=== PATIENT | female | born 1970 | race Caucasian/White ===

== ENCOUNTER 2021-12-24 10:17 | Outpatient (REF) | payer OTHER, SELFPAY ==
--- NOTE | ~2021-12-24 | XR_ITS ---
EXAMINATION: XR CHEST CLINICAL INFORMATION: Dyspnea. COMPARISON: Chest done on 09/09/2013. TECHNIQUE: 2 views of the chest were obtained. FINDINGS: Mild prominent bronchovascular markings are present, may represent reactive airway disease versus viral pneumonia/bronchiolitis. No evidence of any dense airspace consolidation. No evidence of any pleural effusion or pneumothorax. Heart size is within normal limits. XR/XR chest 2V IMPRESSION: Mild nonspecific prominent bronchovascular markings are present, new since prior study dated 09/09/2013, may represent reactive airway disease versus viral pneumonia versus bronchiolitis.
== END 2021-12-24 10:18 | disposition home or self-care (01) ==
LOC: HO.XRAY 10:17
PROVIDERS: PCP Internal Medicine; Visit Provider Internal Medicine
DX: R06.00 Dyspnea, unspecified (principal)
CPT/HCPCS: 71046

== ENCOUNTER 2022-03-31 11:24 | Outpatient (REF) | payer OTHER, SELFPAY ==
--- NOTE | ~2022-03-31 | XR_ITS ---
EXAMINATION: XR CHEST CLINICAL INFORMATION: Cough COMPARISON: December 24, 2021 and September 09, 2013 TECHNIQUE: 2 views of the chest were obtained. FINDINGS: There is again noted to be region of discoid density within the right middle lobe consistent with atelectasis or scarring. No new confluent airspace disease is appreciated. No pneumothorax or pleural effusion. Heart normal size. No evidence of pulmonary edema. XR/XR chest 2V IMPRESSION: Right middle lobe discoid disease consistent with atelectasis or scar.
== END 2022-03-31 11:25 | disposition home or self-care (01) ==
LOC: HO.XRAY 11:24
PROVIDERS: PCP Internal Medicine; Visit Provider Nurse Practitioner Adult Health
DX: R05.9 Cough, unspecified (principal)
CPT/HCPCS: 71046

== ENCOUNTER 2023-11-27 09:57 | Outpatient (REF) | payer OTHER, SELFPAY ==
--- NOTE | ~2023-11-27 | XR_ITS ---
EXAMINATION: XR FINGER, LEFT CLINICAL INFORMATION: Pain and swelling, patient states she fell off bed , 11/23/2023 and left fourth digit hurts. Radiopaque marker placed by technologist to indicate area of concern indicated by the patient at the distal tuft of the fourth digit. COMPARISON: None available. TECHNIQUE: 3 views of the left fourth digit. FINDINGS: No displaced fracture of the fourth digit is appreciated. Alignment and joint spaces of the fourth digit are preserved. Mild degenerative changes in the first carpometacarpal and metacarpophalangeal joints. XR/XR finger LT min 2V IMPRESSION: 1. No displaced fracture of the fourth digit is appreciated. 2. Recommend follow-up imaging in 10-14 days if fracture is suspected.
== END 2023-11-27 09:58 | disposition home or self-care (01) ==
LOC: HO.XRAY 09:57
PROVIDERS: Visit Provider Nurse Practitioner Adult Health
DX: R60.0 Localized edema (principal); M79.605 Pain in left leg
CPT/HCPCS: 73140

== ENCOUNTER 2023-12-15 10:43 | Outpatient (REF) | payer OTHER, SELFPAY ==
--- NOTE | ~2023-12-15 | XR_ITS ---
EXAMINATION: XR HAND, LEFT CLINICAL INFORMATION: Fall COMPARISON: None available. TECHNIQUE: PA, lateral, and oblique views of the left hand. FINDINGS: The bones and soft tissues are normal. No fracture. Alignment is anatomic. Joint spaces are maintained. No erosions or soft tissue calcifications. XR/XR hand LT min 3V IMPRESSION: Unremarkable left hand.
== END 2023-12-15 10:44 | disposition home or self-care (01) ==
LOC: HO.XRAY 10:43
PROVIDERS: PCP Internal Medicine; Visit Provider Internal Medicine
DX: M79.645 Pain in left finger(s) (principal); Z91.81 History of falling
CPT/HCPCS: 73130

== ENCOUNTER 2025-03-31 06:40 | Outpatient (RCR) | payer OTHER, SELFPAY | END 2025-06-03 15:40 | disposition home or self-care (01) | LOC: HO.PT 06:40 | PROVIDERS: PCP Internal Medicine; Visit Provider Student in an Organized Health Care Education/Training Program | DX: M17.11 Unilateral primary osteoarthritis, right knee (principal) | CPT/HCPCS: 97014; 97110; 97112; 97140; 97162 ==

== ENCOUNTER 2025-09-04 10:33 | Outpatient (AMB) | payer OTHER, SELFPAY ==
--- NOTE | 2025-09-04 10:40 | MHC.OFFVIS ---
Intake Visit Reasons: 4M Allergies codeine (From Tylenol-Codeine #3) Allergy (Mild, Unverified 09/04/25 10:45) UNKNOWN phenazopyridine (From Pyridium) Allergy (Mild, Unverified 09/04/25 10:45) RASH sulfamethoxazole (From Bactrim) Allergy (Mild, Unverified 09/04/25 10:45) UNKNOWN tetracycline (Tetracycline) Allergy (Mild, Unverified 09/04/25 10:45) RASH trimethoprim (From Bactrim) Allergy (Mild, Unverified 09/04/25 10:45) UNKNOWN Medication List - Last Reconciled 09/04/25 by Vida Chaves, ADRIAN amitriptyline 75 mg (1.5 x 50 mg) PO BEDTIME 90 days aripiprazole 5 mg PO QAM vagxbbdaeq-pcryokbqpcprs-axcu 50-325-40 mg 1 tab PO Q12H PRN 30 days fluoxetine 40 mg PO QAM fluticasone propion-salmeterol 500-50 mcg/dose (Wixela Inhub) 1 ea inhalation BID fremanezumab-vfrm (Ajovy) 225 mg (1.5 mL) subcut QMONTH 30 days gabapentin 300 mg PO TID 30 days lorazepam 1.5 mg PO DAILY oxycodone-acetaminophen 5-325 mg (Percocet) 0.5 tabs PO Q6H PRN propranolol ER (Inderal LA) 120 mg PO DAILY 90 days rosuvastatin 5 mg PO DAILY semaglutide (weight loss) (Wegovy) 2.4 mg subcut QWEEK trazodone 50 - 150 mg PO BEDTIME PRN zolpidem 10 mg PO BEDTIME HPI Comments Details: She was doing okay. She had R TKR in 06/2025. She has been out of work because of knee since 04/2025 and was officially retiring at the end of 09/2025. Migraines were better with Ajovy, no injection site reactions. She was using as needed medication about 2x/week. She would take butalbital first, and if no relief would take Percocet. She was having few more headaches recently triggered by stress. Asthma was okay, although she still had some wheezing at times, and says senior marketing associate wanted her to come off propranolol. Two weeks of bad headaches in 10/2024 when she returned to work after being off for few weeks. Had third dose of Ajovy on 12/01/2024. Gets headaches about every other day, but not as severe. Usually wakes with headaches. She tried increased dose of amitriptyline in the past, but did not help. Using?butalbital and Percocet more. Headaches increased around 04/2024 when propranolol dose was decreased. Her asthma was not well controlled at the time and pulmonary recommended she ask about propranolol adjustment. Pulmonary is apparently okay with current dose of propranolol. Asthma has been okay. Migraines induced by stress at work and with heat and humidity. 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 Previously, headaches were 1-2x/week. Using Fioricet 2-3/week, usually 1-1.5 a day. Using <20/month. Infrequent Percocet. She tried topiramate in the past with side effects. Botox for chronic migraine on 09/05/16 did not work well. Sumatriptan and Zomig did not work. She has migraine headaches without aura. [facility] Medical History (Updated 09/04/25 @ 10:43 by Vida Chaves CNP) Asthma Depression Migraine Surgical History (Updated 09/04/25 @ 10:47 by Vida Chaves CNP) Status post total right knee replacement Family History (Updated 09/04/25 @ 10:45 by Vida Chaves CNP) Father Headache Review of Systems Const Denies chills, Denies daytime sleepiness, Reports difficulty sleeping, Denies fatigue, Denies fever(s), Denies frequent falls, Reports headache(s), Denies increased appetite, Denies poor appetite, Denies snoring, Denies weakness, Denies weight gain and Denies weight loss Eyes Denies loss of vision ENT Denies vertigo, Denies dizziness, Reports headache(s) and Denies neck pain Card Denies chest pain at rest, Denies chest pain with activity, Denies syncope, Denies leg edema, Denies palpitations, Reports dyspnea and Denies dyspnea on exertion Resp Denies cough, Reports dyspnea, Denies dyspnea on exertion and Denies snoring GI Denies abdominal pain, Denies constipation, Denies heartburn, Denies diarrhea and Denies nausea Denies urinary frequency, Denies urinary incontinence and Denies urinary urgency Musc Denies abnormal gait, Denies back pain, Denies myalgias, Denies arthralgias, Denies neck pain, Denies numbness and Denies tingling Neuro Denies abnormal gait, Denies vertigo, Denies dizziness, Denies syncope, Denies frequent falls, Reports headache(s), Denies lack of coordination, Denies loss of vision, Denies memory loss, Denies numbness, Denies Other visual disturbances, Denies restless legs, Denies seizure-like activity, Denies tingling, Denies paresthesias, Denies tremor(s) and Denies weakness Psych Reports anxiety, Reports depression, Denies auditory hallucinations, Denies memory loss and Denies visual hallucinations Endo Denies fatigue and Denies palpitations Physical Exam Const Other: General Appearance:? normal, in no acute distress. Heart:? S1, S2 normal, no murmurs. Lungs:? clear anteriorly and posteriorly. Musculoskeletal:? normal. Extremities:? no edema. Psych:? alert, oriented, cognitive function intact, cooperative with exam. Neuro Other: Abnormal Neurological Findings:?none.? Mental Status: alert and oriented X 3. Normal attention, orientation, memory, and affect. Cranial Nerves: Pupils are equal, round, and reactive to light. External ocular muscles are intact. Visual sheikh are full, no ptosis. Face is symmetrical, no facial weakness or droop. Facial sensations are normal. Tongue protrudes in midline. Palate elevates symmetrically. Shoulder shrugging is normal Motor Examination: Normal muscle tone, bulk and strength. No atrophy or fasciculations. No drift of the extended upper extremities. DTR 2+. Plantars are flexor. Sensory Exam: Normal light touch, temperature, pinprick, vibration, and joint-position sensations. Rhomberg sign is absent. Coordination: No ataxia. No titubation. Gait Exam: Within normal limits. Cerebellar Signs: Dpxoxh-qy-vdsi is okay. Extrapyramidal System: No tremor, rigidity with normal facial expressions. No bradykinesia. No bradyphrenia. Normal arm swing and posture. No propulsion or retropulsion. Speech: Normal. Assessment & Plan Assessment & Plan (1) Migraine: Code(s): G43.909 - Migraine, unspecified, not intractable, without status migrainosus Category: Medical Qualifiers: Migraine type: unspecified Status migrainosus presence: without status migrainosus Intractability: not intractable Qualified Code(s): G43.909 - Migraine, unspecified, not intractable, without status migrainosus Plan: Discussed option to decrease propranolol dose, including possibly of increased headaches with reduced dose - given she admits to being under some more stress lately (which triggers headaches) and also admits to having few more headaches recently, may benefit from holding off at this time and can readdress at next appointment - however, she prefers to decrease dose. Decrease propranolol 60mg 0.5 tablet in the morning and 1 tablet at bedtime Continue Ajovy 225mg/1.5mL subcutaneous monthly. Continue amitriptyline 50mg 1.5 tablets at bedtime. Continue wrotnttwbn-WQDY-[id number] 50-325-40mg 1 tablet q12h as needed for headache #15 for 30 days. Continue Percocet 5-325mg 1/2 tablet q6h as needed for headache #15 for 30 days. Follow up in 3 months or sooner as needed. Plan Meds tried: topiramate, propranolol, amitriptyline, botox, gabapentin Medications: New propranolol 60 mg orally 1/2 tablet in the morning and 1 tablet at night; 135 tabs 0RF 90 days Discontinued propranolol ER (Inderal LA) Discontinued Reason: Doctor's Order 120 mg PO DAILY 90 days 90 caps 1RF Coding Level of Care Code Est Pt Level 4 (49780) Diagnoses Migraine without status migrainosus, not intractable, unspecified migraine type G43.909 Migraine type: unspecified Status migrainosus presence: without status migrainosus Intractability: not intractable
--- OUTSIDE RECORDS SUMMARY | 2025-09-04 13:16 | XMS_ITS | Clinical Summary ---
Author Organization [facility] Address [address] [place] [phone] Phone Care Team Providers Care [employer] Name Role Phone Blayne Davies DO Primary Care Provider [phone] Allergies Active Allergy Reactions Criticality Noted Date Comments Baclofen Nausea And Vomiting Medium 05/29/2025 Cephalexin Unknown Low 05/29/2025 Unknown reaction Note: Patient treated with cefuroxime January 2025 without adverse reaction. Was able to complete course of p.o. antibiotics. Codeine Nausea And Vomiting Low 04/08/2009 Phenazopyridine Low 05/29/2025 unknown Phenazopyridine-Butabarb- Hyosc Nausea And Vomiting Low 04/08/2009 Sulfa (Sulfonamide Antibiotics) Nausea And Vomiting Low 04/08/2009 Sulfamethoxazole-Trimetho prim Nausea And Vomiting Low 11/21/2012 Tetracyclines Nausea And Vomiting Low 04/08/2009 Medications ARIPiprazole (ABILIFY) 5 mg tablet Take 1 tablet (5 mg total) by mouth 1 (one) time each day in the morning. 2 Active butalbital-acetam inophen-caffeine (FIORICET, ESGIC) 50-325-40 mg per tablet TAKE 1 TABLET EVERY 12 HOURS NEEDED ORALLY DIRECTED 30 DAYS 2 Active cetirizine (ZyrTEC) 10 mg tablet Take 1 tablet (10 mg total) by mouth 1 (one) time each day. for 14 days 5 Active albuterol-budeson jesus (Airsupra) 90-80 mcg/actuation inhaler Inhale 2 puffs by mouth every 4 (four) hours. Active Wegovy 2.4 mg/0.75 mL injection pen /05/26/25 last dose Active Tezspire 210 mg/1.91 mL (110 mg/mL) injection Inject 210 mg under the skin every 28 (twenty-eight) days. Due 06/03 Active Ajovy Autoinjector 225 mg/1.5 mL auto-injector Inject 1.5 mL (225 mg total) under the skin every 28 (twenty-eight) days. Active tiotropium (SPIRIVA RESPIMAT) 1.25 mcg/actuation inhalation spray Inhale 2 puffs by mouth 1 (one) time each day. 5 days pre op will increase to twice day per prescriber Active traZODone (DESYREL) 50 mg tablet Take 2 tablets (100 mg total) by mouth at bedtime. 5 Active gabapentin (NEURONTIN) 300 mg capsule Take 1 capsule (300 mg total) by mouth 2 (two) times a day. 2 Active LORazepam (ATIVAN) 0.5 mg tablet Take 1 tablet (0.5 mg total) by mouth. 1/2 tab AM and 1 mg HS Active potassium chloride 20 mEq tablet extended release Take 1 tablet by mouth 2 (two) times a day with meals. Active omeprazole (PriLOSEC) [address] capsule Take 1 capsule (40 mg total) by mouth 1 (one) time each day in the morning. 2 Active FLUoxetine (PROzac) 20 mg capsule Take 2 capsules (40 mg total) by mouth 1 (one) time each day in the morning. 4 Active hydroCHLOROthiazi de (HYDRODIURIL) 25 mg tablet Take 1 tablet (25 mg total) by mouth 1 (one) time each day in the morning. 4 Active propranolol LA (INDERAL LA) 120 mg 24 hr capsule Take 1 capsule (120 mg total) by mouth 1 (one) time each day. for 90 days Active rosuvastatin (CRESTOR) 5 mg tablet Take 1 tablet (5 mg total) by mouth 1 (one) time each day. 2 Active zolpidem (AMBIEN) 10 mg tablet Take 1 tablet (10 mg total) by mouth at bedtime. 4 Active riboflavin, vitamin B2, (PUREVITA VITAMIN B2 ORAL) Take by mouth. Activ e melatonin 10 mg capsule Take 6 capsules (60 mg total) by mouth at bedtime. Active calcium carbonate/vitamin D3 (CALCIUM 500 + D, D3, ORAL) Take by mouth. Ac tive [id number]-[id number] -FA-vit K-lut (Multivitamin Women 50 Plus) 8 mg iron-400 mcg-50 mcg tablet Take by mouth. Active methocarbamoL (ROBAXIN) 750 mg tablet Take 1 tablet (750 mg total) by mouth every 6 (six) hours if needed for muscle spasms for up to 10 days. 40 tablet 5 Active senna-docusate (PERICOLACE) 8.6-50 mg per tablet Take 1 tablet by mouth 2 (two) times a day. 30 tablet 5 06/21/20 26 Active Active Problems Problem Noted Date Diagnosed Date Elective surgery 06/19/2025 Hyperlipidemia 06/04/2025 Assessment & Plan (06/04/2025 7:18 AM EDT): Managed with rosuvastatin, low-cholesterol diet and lifestyle modification. Suggest continued outpatient follow up. Depression with anxiety 06/04/2025 Assessment & Plan (06/04/2025 7:18 AM EDT): Stable on current medication regimen of aripiprazole, fluoxetine, and as needed lorazepam. Recommend minimizing disruption to medication schedule. May benefit from anxiolytic in the perioperative setting. Asthma Overview (05/29/2025): from [facility] Assessment & Plan (06/04/2025 7:35 AM EDT): Respiratory status is stable. Managed by allergy and immunology. Taking Tezspire [Anti-thymic stromal lymphopoietin] every 28 days. Inhalers: Spiriva and Airsupra. No hospitalizations or treatment with antibiotics or prednisone in 90 days. PFT above. No anemia. Clinically patient appears well in the office today. Lungs CTA. SpO2 96%. ARISCAT score: 3 points, low risk, 1.6% risk of in-hospital post-op pulmonary complications. GERD (gastroesophageal reflux disease) Overview (05/29/2025): DX:GERD (gastroesophageal reflux disease); COMMENT: s/p EGD Dr. Owusu, 2006 Assessment & Plan (06/01/2025 9:58 AM EDT): Taking PPI. No alarm symptoms. Suggest attention to GI prophylaxis periop. PONV (postoperative nausea and vomiting) Assessment & Plan (06/04/2025 7:35 AM EDT): No glaucoma history. Attention to postoperative nausea and vomiting during hospitalization. This will be discussed during the perioperative setting with the anesthesia team. Encounters Date Type Department Care Team Description 06/19/2025 10:36 AM EDT Anesthesia Event [facility] OR [address] [place] [phone] Abdoulaye Call MD Jaeger, David B, MD 06/19/2025 10:30 AM EDT - 06/19/2025 1:00 PM EDT Surgery [address] [phone] Julius Moy MD ARTHROPLASTY KNEE TOTAL [11785 (CPT )] 06/19/2025 7:38 AM EDT - 06/21/2025 12:27 PM EDT Hospital Encounter [facility] [address] [place] [phone] Julius Moy MD S/P total knee replacement, right (Primary Dx); Primary osteoarthritis of right knee Discharge Disposition: Home-Health Care [facility] from Last 3 Months Surgical History Surgery Date Site/Laterality Comments OTHER SURGICAL HISTORY PROCEDURE: FL US ABLATJ UTERINE LEIOMYOMATA < 200 CC TISSUE; COMMENT: Gluterius CHOLECYSTECTOMY COLONOSCOPY ENDOMETRIAL ABLATION DILATION AND CURETTAGE OF UTERUS HYSTEROSCOPY SECTION, LOW TRANSVERSE 2 Medical History Medical History Date Comments GERD (gastroesophageal reflux disease) s/p EGD Dr. Owusu, 2006 Depression Kidney stone Pure hypercholesterolemia Ovarian cyst 04/08/2009 Migraine 04/08/2009 Gall stone s/p cholecystect rosendo 05/27 Lymphedema of arm 10/11/2012 Morbid obesity ([facility] V24, [facility] V28) 2012 Asthma Peripheral neuropathy occ at nig ht Left hand numbness Insomnia disorder Anxiety Arthritis PONV (postoperative nausea and vomiting) Family History Medical History Relation Name Comments No Known Problems Brother 1 Diabetes Father Christian lintond Father Hyperlipidemia Father Christian lintond Hypertension Father Christian lintond Cancer Mother Flor mahajan pancreatic Early Mother Flor mahajan cance r Hyperlipidemia Mother Flor mahajan Relation Name Status Comments Brother 1 Alive Brother 2 Father Christian mahajan Alive htn, dm Mother Flor mahajan (Age 74) htn Sister Alive Social History Tobacco Use Types Packs/Day Years Used Date Smoking Tobacco: Never Smokeless Tobacco: Never Tobacco Cessation:Counseling Given: Not Answered Alcohol Use Standard Drinks/Week Comments No 0 (1 standard drink = 0.6 oz pur e alcohol) Interpersonal Safety Answer Date Record ed Physical Abuse Unrecognized value 06/20/2025 Verbal Abuse Unrecognized value 06/20/2025 Comments No Sex and Gender Information Value Date Recorded Sex Assigned at Not on file Legal Sex Female 7:04 PM EST Gender Identity Not on file Sexual Orientation Not on file 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 Not on file Not on file Not on file Last Filed Vital Signs Vital Sign Reading Time Taken Comments Blood Pressure 140/82 06/21/2025 7:35 AM EDT Pulse 66 06/21/2025 7:35 AM EDT Temperature 37 C (98.6 F) 06/21/2025 7:35 AM EDT Respiratory Rate 14 06/21/2025 7:35 AM EDT Oxygen Saturation 96% 06/21/2025 7:35 AM EDT Inhaled Oxygen Concentration - - Weight 96.4 kg (212 lb 8 oz) 06/19/2025 8:29 AM EDT Height 157.5 cm (5' 2 ) 06/19/2025 8:29 AM EDT Body Mass Index 38.87 06/19/2025 8:29 AM EDT Plan of Treatment Health Maintenance Due Date Last Done Comments Breast Cancer Screening 1968 Colorectal Cancer Screening: Colonoscopy 1968 Drug Screen 1968 Naloxone Order 1968 Non-Opioid Controlled Substance Agreement 1968 Opioid Substance Agreement 1968 Pain Assessment 1968 Hepatitis B Vaccines (1 of 3 - 19+ 3-dose series) 1987 Pneumococcal Vaccine: 50+ Years (1 of 2 - PCV) 1987 Cervical Cancer Screening: Pap Smear 1989 RSV Immunization Adult Patients (1 - Risk 50-74 years 1-dose series) 2018 Zoster Vaccines (1 of 2) 2018 HIV Screening 08/20/2022 Hepatitis C Screening 08/20/2022 Social Influencers of Health Screening 08/20/2022 Depression Screening 09/18/2024 COVID-19 Vaccine (4 - season) 2025 09/06/2022, 11/13/2020, 10/16/2020 Influenza Vaccine (#1) 2025 , 06/20/2023, 06/13/2018, Additional history exists Cholesterol Screening (Lipid Panel) 01/01/2030 01/01/2025 DTaP,Tdap,and Td Vaccines (4 - Td or Tdap) 01/27/2032 01/26/2022, 11/21/2012, 09/19/2007 HIB Vaccines Aged Out No longer eligi ble based on patient's age to complete this topic HPV Vaccines Aged Out No longer eligi ble based on patient's age to complete this topic Hepatitis A Vaccines Aged Out No long er eligible based on patient's age to complete this topic IPV Vaccines Aged Out No longer eligi ble based on patient's age to complete this topic MMR Vaccines Aged Out No longer eligi ble based on patient's age to complete this topic Meningococcal ACWY Vaccine Aged Out N o longer eligible based on patient's age to complete this topic Meningococcal B Vaccine Aged Out No l onger eligible based on patient's age to complete this topic RSV Immunization Patients Under 20 months Aged Out No longer eligible based on patient's age to complete this topic Varicella Vaccines Aged Out No longer eligible based on patient's age to complete this topic Goals Goal Patient Goal Type Associated Problems Recent Progress Patient-Stated? Author Autogenerat ed Goal Care Plan Autogenerated Problem No [employer] Implanted Type Area Oil Tank Car Cleaner Device Identifier Shelf Expiration Date Model / Serial / Lot Cement Bone Surg Simplex Radiopq - [id number] Implanted:Qty: 1 on 06/19/2025 by Julius Moy MD at [facility] Bone Cement Right: Knee [employer] 09/17/2027 [id number] / / [id number] Patella [id number] Leatha Ii Strl Resur - Sna - [id number] Implanted:Qty: 1 on 06/19/2025 by Julius Moy MD at [facility] Joints Knee Right: Knee [employer] 01/19/2035 [id number] / NA / [id number] Cr Fem Ox [employer] Internet Sales Consultant Rt Sz 3 - Sna - [id number] Implanted:Qty: 1 on 06/19/2025 by Julius Moy MD at [facility] Joints Knee Right: Knee [employer] 11/19/2033 [id number] / NA / [id number] Poroustibia Baseplate W/Jrny Lock Sz2 Rt - Sna - [id number] Implanted:Qty: 1 on 06/19/2025 by Julius Moy MD at [facility] Joints Knee Right: Knee [employer] 03/05/2035 [id number] / NA / [id number] Insert Cruc Journey Xlpe Rt 1-2 10mm - [id number] Implanted:Qty: 1 on 06/19/2025 by Julius Moy MD at [facility] Joints Knee Right: Knee [employer] 09/18/2026 [id number] / / [id number] Procedures Procedure Name Priority Date/Time Associated Diagnosis Comments OXYGEN THERAPY, ADULT Routine 06/20/2025 8:01 AM EDT OXYGEN THERAPY, ADULT Routine 06/20/2025 8:01 AM EDT ALBUMIN Routine 06/20/2025 5:32 AM EDT OXYGEN THERAPY, ADULT Routine 06/19/2025 3:38 PM EDT OXYGEN THERAPY, ADULT Routine 06/19/2025 3:38 PM EDT OXYGEN THERAPY, ADULT Routine 06/19/2025 12:36 PM EDT ANESTHESIA SPINAL BLOCK Routine 06/19/2025 10:40 AM EDT FL ARTHROPLASTY KNEE CONDYLE&PLATEAU MED/LAT CPTS W/WO PATELLA RESURFACING 06/19/2025 10:20 AM EDT Unilateral primary osteoarthritis, right knee Case Notes Bambi-Op 06/02 MP23 [employer]&Nephew: Sunny 2 LIPID PANEL WITH REFLEX TO DIRECT LDL Routine 01/01/2025 8:03 AM EDT Routine general medical examination at a health care facility Essential hypertension, malignant Hyperlipemia from Last 3 Months or Most Recently Relevant to Health Maintenance Results * (ABNORMAL) Albumin (06/20/2025 5:32 AM EDT) Albumin 3.4(L) 3.5 - 5.0 g/dL LAB CHEMISTRY METHOD 06/20/2025 6:15 AM EDT [facility] Blood Venous blood specimen / Unknown Venipuncture / Unknown 06/20/2025 5:32 AM EDT 06/20/2025 5:43 AM EDT us Donnell URENA LAB BLOOD ORDERABLES Final Res ult [facility] [address] [place] [address], * Spinal Block (06/19/2025 10:40 AM EDT) Narrative Wendy Shankar CRNA - 06/19/2025 10:40 AM EDT Wendy Shankar CRNA 06/19/2025 11:14 AM Spinal Block Patient location during procedure: OR Start time: 06/19/2025 10:40 AM End time: 06/19/2025 10:43 AM Reason for block: primary anesthetic Staffing Performed: resident/ELECTRON BEAM PHOTO MASK MAKER/CAA Resident/ELECTRON BEAM PHOTO MASK MAKER: Wendy Shankar CRNA Performed by: Wendy Shankar CRNA Authorized by: Abdoulaye Call MD Preanesthetic Checklist Completed: patient identified, IV checked, risks and benefits discussed, surgical consent, monitors and equipment checked, pre-op evaluation and timeout performed Spinal Block Patient position: sitting Prep: ChloraPrep Patient monitoring: heart rate, liquid compounder and continuous pulse ox Approach: midline Location: L4-5 Injection technique: single-shot Needle Needle type: Leyla Needle gauge: 22 G Needle length: 3.5 in Assessment Sensory level: T10 us Abdoulaye Call MD ANESTHESIA ORDERABLES Karla l Result * Lipid panel with reflex to direct LDL (01/01/2025 8:03 AM EDT) Cholesterol 176 0 - 200 mg/dL LAB [facility]STR[facility] Triglycerides 95 0 - 150 mg/dL LAB CHEMISTRY METHOD 01/01/2025 12:09 PM [facility] HDL 69 >=40 mg/dL LAB CHEMISTRY METHOD 01/01/2025 12:09 PM [facility] LDL Calculated 88 0 - 100 mg/dL LAB CHEMISTRY METHOD 01/01/2025 12:09 PM [facility] VLDL Cholesterol James 19 mg/dL LAB CHEMISTRY METHOD 01/01/2025 12:09 PM [facility] Non HDL Chol. (LDL+VLDL) 107 <145 mg/dL LAB CHEMISTRY METHOD 01/01/2025 12:09 PM [facility] Chol/HDL Ratio 2.6 0.0 - 4.4 LAB CHEMISTRY METHOD 01/01/2025 12:09 PM [facility] Blood Venous blood specimen / Unknown Venipuncture / Unknown 01/01/2025 8:03 AM EDT 01/01/2025 8:03 AM EDT us Kalyn Bland NP LAB BLOOD ORDERABLES Fi nal Result [facility] [address] [place] [address], from Last 3 Months or Most Recently Relevant to Health Maintenance Additional Health Concerns Active Problems Noted Date Diagnosed Date Autogenerated Problem 06/15/2025 Insurance [facility] Advance Directives * Full Code - Confirmed (Latest Code Status on File) Date Activated Date Inactivated Comments 06/19/2025 1:03 PM 06/21/2025 2:[address] [facility] was ascertained in the following way: Code status discussion: discussion with patient To update the patient's code status, place a code status order. Do not modify or discontinue any currently active code status orders. * Full Code - Confirmed Date Activated Date Inactivated Comments 06/19/2025 7:54 AM 06/19/2025 1:[address] [facility] was ascertained in the following way: Code status discussion: discussion with patient To update the patient's code status, place a code status order. Do not modify or discontinue any currently active code status orders. Care Teams [employer] C[employer] Relationship Specialty Start Date End Date Blayne Davies DO [address] [place] [phone] PCP - General 07/19/22
--- OUTSIDE RECORDS SUMMARY | 2025-09-04 13:16 | XMS_ITS ---
Author Name [facility] Organization Unknown Results Test Name/Text Value Interpretation Date Range Source Albumin SerPl-mCnc 3.4 g/dL Below low normal 06/20/2025 3.5 - 5 [facility] History of Medication Use Medication Directions Dispensed Refills Start Date End Date Status dexAMETHasone (DECADRON) tablet 8 mg 8 mg, oral, Once, On Mon06/20/25 at 0800, For 1 dose, Phase II/On Unit, For 1 dose on POD#1 in the morning. Hold for patients with the following procedures: I&D with or without poly exchange, resection arthroplasty, removal of prosthesis. 5 025 completed ARIPiprazole (ABILIFY) tablet 5 mg 5 mg, oral, Every morning, First dose on Mon06/20/25 at 0700 5 active HYDROmorphone (DILAUDID) 2 mg tablet Take 1 tablet (2 mg total) by mouth every 4 (four) hours if needed for moderate pain (pian 1-3). Max Daily Amount: 12 mg 5 active HYDROmorphone (DILAUDID) tablet 4 mg 4 mg, oral, Every 4 hours PRN, moderate pain, pain 4-6, Starting on Mon06/20/25 at 1332 5 active loratadine (CLARITIN) tablet 10 mg 10 mg, oral, Daily, First dose on Mon06/20/25 at 0900 5 active melatonin disintegrating tablet 10 mg 10 mg, oral, Nightly PRN, sleep, Starting on Mon06/20/25 at 0014 5 active pantoprazole (PROTONIX) EC tablet 40 mg 40 mg, oral, Every morning before breakfast, First dose on Mon06/20/25 at 0700, Do not crush, chew, or split. active potassium chloride (KLOR-CON M20) CR tablet 10 mEq 10 mEq, oral, 2 times daily, First dose on Mon06/20/25 at 0030, Tablet may be swallowed whole (do not crush/chew/suck on) OR broken in half and each half swallowed separately OR dissolved (whole tablet) in ~4 ounces of water (allow ~2 minutes to dissolve, stir well and administer immediately). active propranolol LA (INDERAL LA) 24 hr capsule 120 mg 120 mg, oral, Daily, First dose on Mon06/20/25 at 0900, Do not crush, chew, or split. active revefenacin (YUPELRI) 175 mcg/3 mL nebulizer solution 175 mcg 175 mcg, nebulization, Daily, First dose on Mon06/20/25 at 0900 active senna-docusate (PERICOLACE) 8.6-50 mg per tablet Take 1 tablet by mouth 2 (two) times a day. active oxyCODONE (ROXICODONE) immediate release tablet 10 mg 10 mg, oral, Every 4 hours PRN, moderate pain, Pain scale 4-6, Starting on Kiki 06/19/25 at 1302, Recovery & On Unit 5 aborted acetaminophen (TYLENOL) 500 mg tablet Take 2 tablets (1,000 mg total) by mouth every 8 (eight) hours 5 025 active ceFAZolin (ANCEF) 2 g in sterile water 20 mL IV syringe 2 g, intravenous, Administer over 3 Minutes, Once, On Kiki 06/19/25 at 1900, For 1 dose, Phase II/On Unit, ceFAZolin (ANCEF) IV 2g patients less than 120kg Give 8 hours after intra-op dose, Indication: Prophylaxis-Surgic al 5 025 completed fentaNYL (PF) (SUBLIMAZE) injection 100 mcg 100 mcg, intravenous, Once as needed, severe pain, Starting on Kiki 06/19/25 at 0754, For 1 dose, Preprocedure 5 completed HYDROmorphone (DILAUDID) injection 0.5 mg 0.5 mg, intravenous, Every 4 hours PRN, severe pain, Pain scale 7-10, Starting on Kiki 06/19/25 at 1324, Recovery [facility] On Unit 5 active meloxicam (MOBIC) 15 mg tablet Take 1 tablet (15 mg total) by mouth 1 (one) time each day. 5 active midazolam (VERSED) injection 2 mg 2 mg, intravenous, Once, On Kiki 06/19/25 at 0815, For 1 dose, Preprocedure 5 completed orphenadrine (NORFLEX) injection 30 mg 30 mg, intravenous, Once as needed, muscle spasms, Starting on Kiki 06/19/25 at 1236, For 1 dose, Recovery (only) 5 completed tranexamic acid (CYKLOKAPRON) 1,000 mg in sodium chloride 0.9 % 100 mL IVPB - MBP 1,000 mg (1 g), intravenous, at 300 mL/hr, Administer over 20 Minutes, Once, On Kiki 06/19/25 at 1330, For 1 dose, Recovery (only), Administer within 30 minutes of arrival to PACU Mini-Bag Plus bag. Do not exceed maximum rate of 100 mg per minute., Tranexamic Acid Indication: Surgical Prophylaxis: Ort 5 completed aluminum-magnesium hydroxide-simethicone (MAALOX) 200-200-20 mg/5 mL suspension 30 mL 30 mL, oral, Every 6 hours PRN, indigestion, Starting on Kiki 06/19/25 at 1538, Phase II/On Unit active aspirin 81 mg EC tablet Take 1 tablet (8 1 mg total) by mouth 2 (two) times a day with meals. active benzocaine-menthoL (CEPACOL SORE THROAT) 15-3.6 mg lozenge 1 lozenge 1 lozenge, Mouth/Throat, Every 2 hours PRN, sore throat, Starting on Kiki 06/19/25 at 1538, Phase II/On Unit 5 active bisacodyL (DULCOLAX) suppository 10 mg 10 mg, rectal, Daily PRN, constipation, Starting on Kiki 06/19/25 at 1538, Phase II/On Unit, Hold for patients with history of IBS, IBO, ileostomy 5 active calcium carbonate (TUMS) chewable tablet 500 mg 500 mg, oral, Every 4 hours PRN, heartburn, indigestion, Starting on Kiki 06/19/25 at 1538, Phase II/On Unit, Ordered as calcium carbonate. 500 mg calcium carbonate = 200 mg elemental calcium. 5 active ipratropium-albuteroL (DUONEB) 0.5-2.5 mg/3 mL nebulizer solution 3 mL 3 mL, nebulization, Once as needed, wheezing, Starting on Kiki 06/19/25 at 1312, For 1 dose 5 active lactated Ringer's infusion 100 mL/hr, intravenous, Continuous, Starting on Kiki 06/19/25 at 0815, Preprocedure 5 active magnesium hydroxide (MILK OF MAGNESIA) 400 mg/5 mL suspension 30 mL 30 mL, oral, Daily PRN, constipation, Starting on Kiki 06/19/25 at 1538, Phase II/On Unit, Hold for patients with history of IBS, IBO, ileostomy 5 active methocarbamoL (ROBAXIN) 750 mg tablet Take 1 tablet (750 mg total) by mouth every 6 (six) hours if needed for muscle spasms for up to 10 days. 5 active metoclopramide (REGLAN) injection 10 mg 10 mg, intravenous, Every 6 hours PRN, nausea, vomiting, Starting on Kiki 06/19/25 at 1302, Recovery & On Unit, To be given if zofran is ineffective Doses LESS than or equal to 10 mg can be given IV push undiluted over 1 minute 5 active ondansetron (PF) (ZOFRAN) injection 4 mg 4 mg, intravenous, Every 6 hours PRN, nausea, vomiting, Starting on Kiki 06/19/25 at 1302, Recovery & On Unit, To be given first 5 active Senokot-S 8.6 mg-50 mg tablet Take 1 tablet twice a day by oral route. 5 completed Tylenol Extra Strength 500 mg tablet Take 2 tablets every 8 hours by oral route for 28 days. 5 completed tranexamic acid 650 mg tablet Take 3 tablets every day by oral route in the morning for 3 days, for start the day after surgery. 5 completed traZODone (DESYREL) 50 mg tablet Take 2 tablets (100 mg total) by mouth at bedtime. 5 active prednisone 10 mg tablet Take 5 tablet(s) EVERY DAY by oral route for 2 days, then decrease by 1 pill every other day until gone (5,5,4,4,3,3,2,2,1 ,1) 5 023 active Euflexxa 10 mg/mL (mw 2.4-3.6 million) intra-articular syringe Inject 10 mg by intra-articular route for 21 days. 5 active cetirizine (ZyrTEC) 10 mg tablet Take 1 tablet (10 mg total) by mouth 1 (one) time each day. for 14 days 5 active triamcinolone acetonide 40 mg/mL suspension for injection Take 60 mg by injection route. 4 active meloxicam 15 mg tablet Take 1 tablet every day by oral route as needed for 30 days. 3 025 active Kenalog 40 mg/mL suspension for injection Take 1 mL by injection route. 3 023 completed lidocaine (PF) 100 mg/5 mL (2 %) injection syringe Take 3 mL by injection route. 3 023 active butalbital-acetaminophe n-caffeine (FIORICET, ESGIC) 50-325-40 mg per tablet TAKE 1 TABLET EVERY 12 HOURS NEEDED ORALLY DIRECTED 30 DAYS 2 active oxyCODONE-acetaminophen (PERCOCET) 5-325 mg per tablet 1 tablet every 6 (six) hours if needed. Use 1/2 tab 2 active omeprazole (PriLOSEC) [address] capsule Take 1 capsule (40 mg total) by mouth 1 (one) time each day in the morning. 2 active diclofenac (VOLTAREN) 75 mg EC tablet Take 1 tablet (75 mg total) by mouth 2 (two) times a day. 2 active rosuvastatin (CRESTOR) 5 mg tablet Take 1 tablet (5 mg total) by mouth 1 (one) time each day. 2 active gabapentin (NEURONTIN) 300 mg capsule Take 1 capsule (300 mg total) by mouth 2 (two) times a day. 2 active ARIPiprazole (ABILIFY) 5 mg tablet Take 1 tablet (5 mg total) by mouth 1 (one) time each day in the morning. 2 active amitriptyline (ELAVIL) 50 mg tablet Take 1 tablet (50 mg total) by mouth 1 (one) time each day. 2 025 aborted hydroCHLOROthiazide (HYDRODIURIL) 25 mg tablet Take 1 tablet (25 mg total) by mouth 1 (one) time each day in the morning. 4 active FLUoxetine (PROzac) 20 mg capsule Take 2 capsules (40 mg total) by mouth 1 (one) time each day in the morning. 4 active zolpidem (AMBIEN) 10 mg tablet Take 1 tablet (10 mg total) by mouth at bedtime. 4 active ondansetron 8 mg disintegrating tablet DISSOLVE 1 TABLET BY MOUTH EVERY 8 HOURS NEEDED FOR NAUSEA 025 completed oxycodone 5 mg tablet TAKE 1 TO 2 TABLETS BY MOUTH EVERY 6 HOURS NEEDED FOR PAIN. 025 completed Wegovy 1 mg/0.5 mL subcutaneous pen injector INJECT 1 MG SUBCUTANEOUSLY EVERY WEEK DIRECTED. ROTATE INJECTION SITES IN THE ABDOMEN, THIGH OR UPPER ARM 025 active Wegovy 1.7 mg/0.75 mL subcutaneous pen injector INJECT 0.75 MILLILITERS SUBCUTANEOUSLY WEEKLY 025 active albuterol HFA (PROAIR HFA ; PROVENTIL HFA ; VENTOLIN HFA) 90 mcg/actuation inhaler Take by mouth. 05/19 09/19 025 aborted cromolyn (OPTICROM) 4 % ophthalmic solution INSTILL 1 DROP INTO EACH EYE EVERY 3-4 HOURS 025 aborted fluticasone propion-salmeteroL (ADVAIR DISKUS) 500-50 mcg/dose diskus inhaler Inhale 1 puff by mouth 2 (two) times a day. 025 aborted albuterol sulfate 2.5 mg/3 mL (0.083 %) solution for nebulization INHALE 3 ML BY NEBULIZATION EVERY 6 HOURS NEEDED FOR 30 DAYS 025 active azithromycin 250 mg tablet TAKE 2 TABLETS BY MOUTH TODAY, THEN TAKE 1 TABLET DAILY FOR 4 DAYS DIRECTED 025 active fluconazole 150 mg tablet TAKE 1 TABLET BY MOUTH ONCE 025 completed gabapentin 100 mg capsule TAKE 1 TO 2 CAPSULES BY MOUTH DAILY NEEDED. 025 active benzonatate 200 mg capsule TAKE 1 CAPSULE BY MOUTH THREE TIMES A DAY FOR 10 DAYS NEEDED 025 active Flowflex COVID-19 Antigen Home Test kit 025 completed montelukast 10 mg tablet TAKE 1 TABLET BY MOUTH EVERYDAY AT BEDTIME 025 completed scopolamine 1 mg over 3 days transdermal patch APPLY 1 PATCH TO SKIN BEHIND THE EAR NEEDED TRANSDERMAL EVERY 3 DAYS 025 completed Wegovy 0.25 mg/0.5 mL subcutaneous pen injector INJECT 0.5 ML SUBCUTANEOUSLY WEEKLY 025 completed cephalexin 500 mg capsule TAKE 1 CAPSULE BY MOUTH TWICE A DAY FOR 7 DAYS 024 completed nystatin 100,000 unit/gram topical cream APPLY TO AFFECTED AREA 4 TIMES A DAY FOR 10 DAYS 024 completed nystatin 100,000 unit/gram topical powder APPLY TOPICALLY 4 TIMES DAILY UNTIL RESOLUTION FOR 30 DAYS 024 active prednisone 20 mg tablet TAKE 2 TABLETS B Y MOUTH EVERY DAY FOR 5 DAYS 024 active prednisone 5 mg tablet PLEASE SEE ATTACHED FOR DETAILED DIRECTIONS 023 completed Trelegy Ellipta 200 mcg-62.5 mcg-25 mcg powder for inhalation INHALE ONE PUFF BY MOUTH DAILY 023 completed Advair Diskus 250 mcg-50 mcg/dose powder for inhalation INHALE 1 PUFF INTO THE LUNGS TWICE A DAY FOR 30 DAYS 023 completed albuterol sulfate HFA 90 mcg/actuation aerosol inhaler INHALE 1 TO 2 PUFFS BY MOUTH EVERY 4 TO 6 HOURS NEEDED 023 active aripiprazole 023 completed butalbital-acetaminophe n-caffeine 50 mg-325 mg-40 mg tablet TAKE 1 TABLET BY MOUTH EVERY 12 HOURS FOR 7 DAYS DIRECTED 023 active codeine 10 mg-guaifenesin 100 mg/5 mL oral liquid TAKE 10 MLS BY MOUTH EVERY 4 HRS NEEDED FOR 10 DAYS 023 completed diclofenac sodium 75 mg tablet,delayed release TAKE 1 TABLET BY MOUTH TWICE A DAY FOR 14 DAYS 023 completed fluoxetine 023 completed hydrochlorothiazide 023 completed montelukast 023 completed omeprazole 023 completed Wixela Inhub 500 mcg-50 mcg/dose powder for inhalation INHALE 1 PUFF BY MOUTH TWICE A DAY 023 active Ajovy 225 mg/1.5 mL subcutaneous auto-injector INJECT 1.5 ML SUBCUTANEOUS MONTHLY 30 DAYS active amitriptyline 50 mg tablet TAKE 1 TABLET BY MOUTH EVERY DAY active aripiprazole 5 mg tablet TAKE 1 TABLET BY MOUTH EVERY DAY IN THE MORNING active ascorbate calcium (vitamin C) 500 mg tablet Take by oral route. active aspirin 81 mg tablet,delayed release TAKE 1 TABLET BY MOUTH TWO TIMES A DAY active benzonatate 100 mg capsule TAKE 1 CAPSULE BY MOUTH THREE TIMES A DAY NEEDED FOR 7 DAYS active cefuroxime axetil 500 mg tablet TAKE 1 TABLET BY MOUTH EVERY 12 HOURS FOR 5 DAYS active cetirizine 10 mg tablet TAKE 1 TABLET BY MOUTH EVERY DAY FOR 14 DAYS active cromolyn 4 % eye drops INSTILL 1 DROP INTO EACH EYE EVERY 3 TO 4 HOURS active doxycycline hyclate 100 mg tablet TAKE 1 TABLET BY MOUTH TWICE A DAY FOR 7 DAYS active erythromycin 5 mg/gram (0.5 %) eye ointment APPLY 1 APPLICATION INTO THE LOWER EYELID OF AFFECTED EYE 4 TIMES A DAY FOR 7 DAYS active fluoxetine 20 mg capsule TAKE 2 CAPSULES BY MOUTH EVERY MORNING active gabapentin 300 mg capsule TAKE 1 CAPSULE BY MOUTH THREE TIMES A DAY active hydrochlorothiazide 25 mg tablet TAKE 1 TABLET BY MOUTH EVERY DAY IN THE MORNING FOR 90 DAYS active hydroxyzine pamoate 25 mg capsule TAKE 1 TO 4 CAPSULES BY MOUTH AT NIGHT NEEDED FOR SLEEP active lorazepam 1 mg tablet TAKE 1 AND 1/2 TABLETS DAILY active methocarbamol 750 mg tablet TAKE 1 TABLET BY MOUTH EVERY 6 HOURS NEEDED FOR MUSCLE SPASMS active omeprazole 40 mg capsule,delayed release TAKE 1 CAPSULE BY MOUTH DAILY 30 MINUTES BEFORE MORNING MEAL. 90 active oxycodone-acetaminophen 5 mg-325 mg tablet TAKE 1/2 TABLET BY MOUTH EVERY 6 HOURS NEEDED MAX 1530 DAYS active pantoprazole 40 mg tablet,delayed release TAKE 1 TABLET BY MOUTH EVERY DAY active potassium chloride ER 20 mEq tablet,extended release TAKE 1 TABLET BY MOUTH TWICE A DAY WITH FOOD FOR 30 DAYS active propranolol ER 120 mg capsule,24 hr,extended release TAKE 1 CAPSULE BY MOUTH TWICE DAILY active rosuvastatin 5 mg tablet TAKE 1 TABLET BY MOUTH EVERY DAY active Spiriva Respimat 1.25 mcg/actuation solution for inhalation INHALE 2 PUFFS DAILY active Tezspire active trazodone 50 mg tablet TAKE 1 TO 3 TABLETS BY MOUTH AT BEDTIME NEEDED FOR SLEEP active Wegovy 0.5 mg/0.5 mL subcutaneous pen injector active Wegovy 2.4 mg/0.75 mL subcutaneous pen injector INJECT 2.4 MG SUBCUTANEOUSLY EVERY WEEK DIRECTED. ROTATE INJECTION SITES IN THE ABDOMEN, THIGH OR UPPER ARM active zolpidem 10 mg tablet TAKE 1 TABLET BY MOUTH AT BEDTIME active Ajovy Autoinjector 225 mg/1.5 mL auto-injector Inject 1.5 mL (225 mg total) under the skin every 28 (twenty-eight) days. active albuterol 2.5 mg /3 mL (0.083 %) nebulizer solution INHALE 3 ML BY NEBULIZATION EVERY 6 HOURS NEEDED FOR 30 DAYS active albuterol-budesonide (Airsupra) 90-80 mcg/actuation inhaler Inhale 2 puffs by mouth every 4 (four) hours. active LORazepam (ATIVAN) 0.5 mg tablet Take 1 tablet (0.5 mg total) by mouth. 1/2 tab AM and 1 mg HS active melatonin 10 mg capsule Take 6 capsules (60 mg total) by mouth at bedtime. active namwpslb-evj-hdfe-FA-vi t K-lut (Multivitamin Women 50 Plus) 8 mg iron-400 mcg-50 mcg tablet Take by mouth. active potassium chloride 20 mEq tablet extended release Take 1 tablet by mouth 2 (two) times a day with meals. active propranolol LA (INDERAL LA) 120 mg 24 hr capsule Take 1 capsule (120 mg total) by mouth 1 (one) time each day. for 90 days active Tezspire 210 mg/1.91 mL (110 mg/mL) injection Inject 210 mg under the skin every 28 (twenty-eight) days. Due 06/03 active tiotropium (SPIRIVA RESPIMAT) 1.25 mcg/actuation inhalation spray Inhale 2 puffs by mouth 1 (one) time each day. 5 days pre op will increase to twice day per prescriber active Wegovy 2.4 mg/0.75 mL injection pen /05/26/25 last dose acti ve Allergies Allergen Reaction Severity Comment Documented Date Source Status BACLOFEN NAUSEA AND VOMITING 05/29/2025 [facility] active CEPHALEXIN Unknown reaction,Note: Patient treated with cefuroxime January 2025 without adverse reaction. Was able to complete course of p.o. antibiotics. 05/29/2025 [facility] active PHENAZOPYRIDINE unknown 05/29/2025 [facility] ac tive ALBUTEROL HEADACHE Pt states not working 09/07/2013 [facility] active SULFAMETHOXAZOLE-TR IMETHOPRIM NAUSEA AND VOMITING 11/21/2012 [facility] active CODEINE NAUSEA AND VOMITING 04/08/2009 [facility] active PHENAZOPYRIDINE-BUT ABARB-HYOSC NAUSEA AND VOMITING 04/08/2009 [facility] active SULFA (SULFONAMIDE ANTIBIOTICS) NAUSEA AND VOMITING 04/08/2009 [facility] active TETRACYCLINES NAUSEA AND VOMITING 04/08/2009 [facility] active TETRACYCLINE [facility] PYRIDIUM PLUS [facility] BACTRIM [facility] KEFLEX [facility] PYRIDIUM [facility] Problems Problem Status Onset Date Problem Type Date of Resolution Source Pain of left knee joint active 2023-01-27 ProblemAct [facility] Pain of right knee joint active 2025-04-22 ProblemAct [facility] Osteoarthritis of right knee joint active 2023-08-03 ProblemAct [facility] Pes anserinus bursitis of right knee active 2025-03-13 ProblemAct [facility] Osteoarthritis of knee active 2025-03-13 ProblemAct [facility] Body mass index 40+ - severely obese active 2025-04-22 ProblemAct [facility] Osteoarthritis of left knee joint active 2023-01-27 ProblemAct [facility] Tear of medial meniscus of knee active 2025-04-22 ProblemAct [facility] Sprain of ligament of proximal interphalangeal joint of finger active 2023-11-28 ProblemAct [facility] Obese class II active 2025-04-22 ProblemAct [facility] Contusion of right knee active 2023-08-14 ProblemAct [facility] Contusion of right lower leg active 2023-11-17 ProblemAct [facility] Elective surgery active 2025-06-19 ProblemAct [facility] PONV (postoperative nausea and vomiting) active ProblemAct [facility] Asthma active ProblemAct [facility] GERD (gastroesophageal reflux disease) active ProblemAct [facility] S/P total knee replacement, right active EncounterDiagnosisAct [facility] Depression with anxiety active 2025-06-04 ProblemAct [facility] Primary osteoarthritis of right knee active EncounterDiagnosisAct [facility] Hyperlipidemia active 2025-06-04 ProblemAct [facility] Encounters Encounter Type Encounter Reason Primary Diagnosis Location Date Ambulatory [facility] 08/17/2025 [facility] 08/11/2025 [facility] 07/01/2025 Ambulatory [facility] 06/26/2025 Ambulatory [facility] 06[facility]25/2025 Ambulatory Presence of right artificial knee joint [place] [facility] [place] Pre[place] Exam En[place] for ot [place] [facility] [place] [facility] 06/02/2025 [facility] 05/31/2025 Ambulatory [facility] 05/27/2025 Ambulatory [facility] 05/21/2025 Ambulatory [facility] 04/23/2025 Ambulatory [facility] 04/18/2025 [facility] 04/16/2025 Amb[facility] 04/08/2025 [facility] 04/03/2025 Ambulatory [facility] 04/02/2025 Ambulatory [facility] 03/13/2025 Ambulatory [facility] 03/06/2025 Ambulatory [facility] 02/28/2025 Ambulatory [facility] 02/25/2025 Ambulatory [facility] 02/25/2025 Ambulatory [facility] 01/24/2025 [facility] 01/23/2025 Ambulatory [facility] 10/04/2024 Ambulatory [facility] 10/03/2024 Ambulatory [facility] 10/03/2024 Ambulatory [facility] 07/03/2024 [facility]ulatory [facility] 05/31/2024 Ambulatory [facility] 05/30/2024 Ambulatory [facility] 05/24/2024 Ambulatory [facility] 04/22/2024 [facility] 04/19/2024 [facility] 04/18/2024 [facility] 04/18/2024 Ambulatory [facility] 02/21/2024 Ambulatory [facility] 01/22/2024 [facility]ulatory [facility] 01/18/2024 Ambulatory [facility] 12/13/2023 Ambulatory [facility] 11/28/2023 Ambulatory [facility] 11/16/2023 Ambulatory [facility] 11/09/2023 Ambulatory [facility] 10/04/2023 Ambulatory [facility] 08/30/2023 Ambulatory [facility] 08/28/2023 [facility] 08/09/2023 [facility] 08/09/2023 [facility] 08/09/2023 [facility] 08/03/2023 [facility] 08[facility]03/2023 [facility] 07/17/2023 [facility] 06/21/2023 [facility] 05/17/2023 [facility] 04/12/2023 [facility] 04/12/2023 [facility] 03/09/2023 Ambulatory [facility] 02/20/2023 Ambulatory [facility] 01/27/2023 Ambulatory [facility] 01/27/2023 Ambulatory [facility] 01/27/2023 Ambulatory [facility] 11/23/2022 Care Team Organization Name Specialty Phone Email Start Date End Da te [facility] 06/19/2025 [facility] 06/02/2025 [facility] 06/02/2025 [facility] ELIAS ROGER Primary [facility] [place] 08/18/202205/06
--- OUTSIDE RECORDS SUMMARY | 2025-09-04 13:17 | XMS_ITS | Clinical Summary ---
Author Organization [facility] Prior to 02/15/[address] [place] [id number] Care Team Providers Care Launch Leader Name Role Phone PearlJazzmine garciamonserrat WEINSTEIN Primary Care Provider [phone] Allergies Active Allergy Reactions Criticality Noted Date Comments Sulfamethoxazole-Trimethoprim 2021 Tetracycline 07/19/2022 Medications Medication Sig Dispensed Refills Start Date End Date Status albuterol 108 (90 Base) MCG/ACT inhaler INHALE 2 PUFFS INHALATION EVERY 4 HRS 30 DAYS 0 06/28/2022 Active amitriptyline (ELAVIL) tablet 50 mg Take 1 tablet (50 mg total) by mouth daily. 0 04/29/2022 Active ARIPiprazole (ABILIFY) 5 MG tablet TAKE 1 TABLET BY MOUTH EVERY DAY IN THE MORNING 0 05/13/2022 Active butalbital-acetamino phen-caffeine 50-325-40 MG per tablet TAKE 1 TAB BY MOUTH EVERY 12 HOURS X 7 DAYS 0 07/03/2022 Active diclofenac (VOLTAREN) 75 MG EC tablet TAKE 1 TABLET BY MOUTH TWICE A DAY FOR 14 DAYS 0 06/25/2022 Active fluticasone-salmeter ol 500-50 MCG/ACT AEPB INHALE 1 PUFF INTO THE LUNGS TWICE A DAY FOR 30 DAYS 0 06/15/2022 Active gabapentin (NEURONTIN) 300 MG capsule Take 1 capsule (300 mg total) by mouth 3 (three) times a day. 0 05/27/2022 Active hydroCHLOROthiazide (HYDRODIURIL) tablet 25 mg TAKE 1 TABLET BY MOUTH EVERY DAY IN THE MORNING 0 07/03/2022 Active hydrOXYzine (VISTARIL) 25 MG capsule TAKE 1 TO 3 CAPSULES AT NIGHT NEEDED FOR SLEEP 0 2022 Active LORazepam (ATIVAN) 1 MG tablet TAKE 1/2 TABLET BY MOUTH IN THE MORNING AND TAKE 1 TABLET BY MOUTH ONCE A DAY AT BEDTIME 30 DAY 0 06/29/2022 Active omeprazole (PriLOSEC) 40 MG capsule TAKE 1 CAPSULE BY MOUTH 30 MINUTES BEFORE MORNING MEAL ONCE A DAY 90 DAYS 0 06/26/2022 Active oxyCODONE-acetaminop hen (PERCOCET) 5-325 MG per tablet TAKE 1/2 TABLET BY MOUTH EVERY 6 HRS NEEDED 0 06/28/2022 Active propranolol (INDERAL LA) 120 MG 24 hr capsule Take 1 capsule (120 mg total) by mouth 2 (two) times a day. 0 04/29/2022 Active rosuvastatin (CRESTOR) tablet 5 mg TAKE 1 TABLET BY MOUTH EVERY DAY FOR 90 DAYS 0 06/17/2022 Active zolpidem (AMBIEN) 10 MG tablet Take 1 tablet (10 mg total) by mouth every night at bedtime. 0 06/28/2022 Active Active Problems No known active problems Family History Medical History Relation Name Comments Diabetes Father Hypertension Father Cancer Mother Hypertension Mother Relation Name Status Comments Father Mother Social History Tobacco Use Types Packs/Day Years Used Date Smoking Tobacco: Never Smokeless Tobacco: Never Tobacco Cessation:Counseling Given: Not Answered Alcohol Use Standard Drinks/Week Comments Not Currently 0 (1 standard drink = 0.6 oz pur e alcohol) Sex and Gender Information Value Date Recorded Sex Assigned at Female 07/01/2022 11:22 AM EDT Gender Identity Female 07/01/2022 11:22 AM EDT Sexual Orientation Not on file Job Start Date Occupation Industry Not on file Not on file Not on file Last Filed Vital Signs Vital Sign Reading Time Taken Comments Blood Pressure - - Pulse - - Temperature - - Respiratory Rate - - Oxygen Saturation - - Inhaled Oxygen Concentration - - Weight 108.9 kg (240 lb) 07/19/2022 1:54 PM EDT Height 157.5 cm (5' 2 ) 07/19/2022 1:54 PM EDT Body Mass Index 43.9 07/19/2022 1:54 PM EDT Plan of Treatment Health Maintenance Due Date Last Done Comments Hepatitis B Vaccines (1 of 3 - 3-dose series) 1968 Hepatitis C Screening 1968 COVID-19 Vaccine (#1) 1968 Depression Screening 1980 Preventative Health Evaluation 1986 DTap / Tdap / Td (1 - Tdap) 1987 Cervical Cancer Screening (P ap Smear) 1989 Colon Cancer Screening (Colonoscopy) 2013 Breast Cancer Screening (Mammogram) 2018 Shingrix-Zoster Vaccine (1 of 2) 2018 Influenza Vaccine (#1) 2025 Pneumococcal Vaccine Aged Out No long er eligible based on patient's age to complete this topic RSV Ped < 20 months Aged Out No longe r eligible based on patient's age to complete this topic Care Teams Launch Leader Relationship Specialty Start Date End Date Blayne Davies DO [address] [place] [id number] PCP - General Internal Medicine 07/19/22
== END 2025-09-04 10:59 | disposition home or self-care (01) ==
LOC: HO.HSM 10:34
PROVIDERS: PCP Internal Medicine; Referring Provider Internal Medicine; Visit Provider Registered Nurse
DX: G43.909 Migraine, unspecified, not intractable, without status migrainosus (principal)
CPT/HCPCS: 99214